=== PATIENT | female | born 1995 | race Caucasian/White ===

== ENCOUNTER 2022-03-08 03:58 | Inpatient (IN) ==
[2022-03-08] MEDS ORDERED: Naloxone 0.4 MG/ML INJ IVP PRN (04:31)
[2022-03-08] MEDS ORDERED: miSOPROStoL 25 MCG TABLET PO PRN (04:31)
[2022-03-08] MEDS ORDERED: Famotidine 20 MG/2 ML VIAL IVP PRN (04:31)
[2022-03-08] MEDS ORDERED: Metoclopramide 10 MG/2 ML VIAL IVP PRN (04:31)
[2022-03-08] MEDS ORDERED: Ondansetron 4 MG/2 ML VIAL IVP PRN (04:31)
[2022-03-08] MEDS ORDERED: *HR* Nalbuphine 10 MG/ML AMPUL IV PRN (04:31)
[2022-03-08] MEDS ORDERED: Azithromycin 500 MG in 0.9 % Sodium Chloride 250 ML IVPB PRN (04:31)
[2022-03-08 05:01] LABS: Basophils # 0.1 K/mcL (0.0-0.2); Basophils % 0.6 %; Eosinophils % 0.4 %; Hematocrit 40.4 % (35.3-44.9); Hemoglobin 13.9 g/dL (11.5-15.4); Immature Granulocytes % 0.3 % (0-4); Lymphocytes # 3.7 K/mcL (0.6-4.6); Lymphocytes % 40.9 %; Mean Corpuscular HGB Conc 34.4 g/dL (31.6-35.5); Mean Corpuscular Hemoglobin 30.8 pg (28.0-33.3); Mean Corpuscular Volume 89.4 fL (83.0-100.0); Mean Platelet Volume 10.9 fL (9.4-12.4); Monocytes # 0.8 K/mcL (0.0-1.3); Monocytes % 9.2 %; Neutrophils # 4.4 K/mcL (1.6-8.9); Platelet Count 283 K/mcL (140-400); Red Blood Count 4.52 M/mcL (3.82-4.97); Red Cell Distribution Width 13.4 % (11.5-14.5); Segmented Neutrophils % 48.6 %; White Blood Count 9.1 K/mcL (4.3-11.1)
[2022-03-08 05:06] LABS: Amphetamine Screen,Urine Negative ng/mL (Cutoff=1000); Barbiturate Screen,Urine Negative ng/mL (Cutoff=200); Benzodiazepines Screen,Urine Negative ng/mL (Cutoff=200); Cannabinoid Screen,Urine Negative ng/mL (Cutoff = 50); Cocaine Screen,Urine Negative ng/mL (Cutoff= 300); Opiate Screen,Urine Negative ng/mL (Cutoff=300); Phencyclidine Screen,Urine Negative ng/mL (Cutoff=25)
[2022-03-08] MEDS: Oxytocin 30 UNIT/503 ML BAG IVC SCH ×2 (05:24→13:19)
[2022-03-08] MEDS: Ringers Solution, Lactated 1,000 ML IVC SCH ×2 (05:25→08:11)
[2022-03-08 05:35] LABS: Glucose 75 mg/dL (70-105)
[2022-03-08 06:10] LABS: Alanine Aminotransferase 23 Units/L (7-52); Aspartate Amino Transferase 23 Units/L (13-39); BUN/Creatinine Ratio 14 (6-26); Blood Urea Nitrogen 10 mg/dL (6-20); Lactate Dehydrogenase 164 Units/L (140-271); Uric Acid 6.5 mg/dL (2.3-7.6); eGFR For African Americans > 60 (> 60); eGFR For Non-African Americans > 60 (> 60)
[2022-03-08 06:17] LABS: Bacteria,Urine Few per hpf (None-Few); Bilirubin,Urine Negative (Negative); Blood,Urine Negative (Negative); Clarity,Urine Turbid (Clear); Color,Urine Yellow (Yellow); Glucose,Urine (UA) Normal (Normal); Hyaline Casts,Urine Few per lpf (None Seen); Ketones,Urine Negative (Negative); Leukocyte Esterase,Urine Large (Negative); Mucus,Urine Few per lpf (None-Few); Nitrite,Urine Negative (Negative); PH,Urine 6.5 pH Units (5.0-8.0); Protein,Urine 30 mg/dL (Neg-Trace); Protein/Creatinine Ratio,Urine 0.19 mg/mg (0.00-0.20); Specific Gravity,Urine 1.023 (1.010-1.025); Squamous Epithelial Cell,Urine Many per hpf (None-Few); Urobilinogen,Urine Normal (Normal); WBC,Urine TNTC per hpf (0-3)
[2022-03-08] MEDS ORDERED: Epidural Premix (fent/bupiv) 110 ML EP SCH (08:00)
[2022-03-08] MEDS ORDERED: EPHEDrine 50 MG/ML VIAL IVP PRN (08:00)
[2022-03-08] MEDS ORDERED: OXYTOCIN/RINGERS LACTATE 10 UNIT/166.6 ML BAG IVC ONE (14:57)
[2022-03-08] MEDS ORDERED: Rho Immune Globulin 1,500 UNIT SYRINGE IM PRN (14:57)
[2022-03-08] MEDS ORDERED: Ondansetron ODT 4 MG TAB.RAPDIS SL PRN (14:57)
[2022-03-08] MEDS ORDERED: Measles/Mumps/Rubella Vacc 0.5 ML VIAL SQ PRN (14:57)
[2022-03-08] MEDS ORDERED: Lanolin 7 G OINT...G. TP PRN (14:57)
[2022-03-08] MEDS ORDERED: Benzocaine/Menthol 56 GM AEROSOL SPRAY TP PRN (14:57)
[2022-03-08] MEDS: Ibuprofen 600 MG TABLET PO SCH (21:05)
[2022-03-08] MEDS: Acetaminophen 325 MG TABLET PO SCH (21:05)
[2022-03-09] MEDS: Ibuprofen 600 MG TABLET PO SCH ×2 (04:03→10:35)
[2022-03-09] MEDS: Acetaminophen 325 MG TABLET PO SCH ×2 (04:04→10:36)
[2022-03-09 04:08] VITALS: TEMP 98.1
[2022-03-09 05:15] LABS: Basophils % 0.4 %; Eosinophils % 0.4 %; Hematocrit 39.7 % (35.3-44.9); Hemoglobin 13.6 g/dL (11.5-15.4); Immature Granulocytes % 0.4 % (0-4); Lymphocytes # 2.6 K/mcL (0.6-4.6); Mean Corpuscular HGB Conc 34.3 g/dL (31.6-35.5); Mean Corpuscular Hemoglobin 30.7 pg (28.0-33.3); Mean Corpuscular Volume 89.6 fL (83.0-100.0); Monocytes # 0.7 K/mcL (0.0-1.3); Neutrophils # 6.5 K/mcL (1.6-8.9); Platelet Count 279 K/mcL (140-400); Red Blood Count 4.43 M/mcL (3.82-4.97); Red Cell Distribution Width 13.4 % (11.5-14.5); Segmented Neutrophils % 65.8 %; White Blood Count 9.9 K/mcL (4.3-11.1)
[2022-03-09 07:08] VITALS: BP 120/56; PULSE 78; O2SAT 100
[2022-03-09] MEDS ORDERED: Prenatal Vit/FA 1 EACH TABLET PO SCH ×2 (09:00)
== END 2022-03-09 16:49 | disposition home or self-care (01) | DRG 807 ==
LOC: 1NENULAB 03:58 → 1NENUOBS 15:44
PROVIDERS: ADMIT Student in an Organized Health Care Education/Training Program; ATTEND Student in an Organized Health Care Education/Training Program

== ENCOUNTER 2022-03-15 16:41 | Observation (INO) ==
[2022-03-15] MEDS ORDERED: Ibuprofen 600 MG TABLET PO PRN (23:25)
[2022-03-15] MEDS ORDERED: Acetaminophen 325 MG TABLET PO PRN (23:25)
[2022-03-15] MEDS ORDERED: Magnesium Sulf 20 gm/SW 500mL 20 GM/500 ML IV.SOLN IVC SCH (23:30)
[2022-03-15] MEDS ORDERED: 0.9 % Sodium Chloride 1,000 ML ONE (23:33)
[2022-03-16] MEDS ORDERED: Calcium Gluconate 1,000 MG/10 ML VIAL ONE (02:09)
[2022-03-16 05:09] LABS: Hematocrit 41.8 % (35.3-44.9); Hemoglobin 14.1 g/dL (11.5-15.4); Mean Corpuscular HGB Conc 33.7 g/dL (31.6-35.5); Mean Corpuscular Hemoglobin 30.6 pg (28.0-33.3); Mean Corpuscular Volume 90.7 fL (83.0-100.0); Mean Platelet Volume 9.5 fL (9.4-12.4); Platelet Count 382 K/mcL (140-400); Red Blood Count 4.61 M/mcL (3.82-4.97); Red Cell Distribution Width 13.1 % (11.5-14.5); White Blood Count 9.7 K/mcL (4.3-11.1)
[2022-03-16 05:10] LABS: Basophils # 0.1 K/mcL (0.0-0.2); Basophils % 0.5 %; Eosinophils # 0.1 K/mcL (0.0-0.6); Eosinophils % 0.9 %; Immature Granulocytes % 0.5 % (0-4); Lymphocytes # 2.9 K/mcL (0.6-4.6); Lymphocytes % 29.5 %; Monocytes # 0.7 K/mcL (0.0-1.3); Monocytes % 7.6 %; Neutrophils # 5.9 K/mcL (1.6-8.9)
[2022-03-16 05:18] LABS: Protein/Creatinine Ratio,Urine 0.32 mg/mg (0.00-0.20)
[2022-03-16 05:30] LABS: Alanine Aminotransferase 27 Units/L (7-52); Aspartate Amino Transferase 17 Units/L (13-39); BUN/Creatinine Ratio 13 (6-26); Blood Urea Nitrogen 9 mg/dL (6-20); Lactate Dehydrogenase 160 Units/L (140-271); Uric Acid 6.4 mg/dL (2.3-7.6); eGFR For African Americans > 60 (> 60); eGFR For Non-African Americans > 60 (> 60)
[2022-03-16] MEDS ORDERED: Ringers Solution, Lactated 1,000 ML ONE (13:00)
[2022-03-17] MEDS: NIFEdipine XL (24 HR) 60 MG TAB.ER.24 PO SCH (16:34)
[2022-03-17 21:46] VITALS: TEMP 98
[2022-03-18 06:00] LABS: Basophils # 0.1 K/mcL (0.0-0.2); Basophils % 0.6 %; Eosinophils # 0.2 K/mcL (0.0-0.6); Eosinophils % 1.9 %; Hematocrit 43.6 % (35.3-44.9); Hemoglobin 14.6 g/dL (11.5-15.4); Immature Granulocytes % 0.3 % (0-4); Lymphocytes # 3.5 K/mcL (0.6-4.6); Lymphocytes % 36.7 %; Mean Corpuscular HGB Conc 33.5 g/dL (31.6-35.5); Mean Corpuscular Hemoglobin 30.5 pg (28.0-33.3); Mean Corpuscular Volume 91.2 fL (83.0-100.0); Mean Platelet Volume 8.9 fL (9.4-12.4); Monocytes # 0.8 K/mcL (0.0-1.3); Monocytes % 8.2 %; Platelet Count 419 K/mcL (140-400); Red Blood Count 4.78 M/mcL (3.82-4.97); Red Cell Distribution Width 13.1 % (11.5-14.5); Segmented Neutrophils % 52.3 %; White Blood Count 9.5 K/mcL (4.3-11.1)
[2022-03-18 06:14] LABS: Alanine Aminotransferase 39 Units/L (7-52); Aspartate Amino Transferase 25 Units/L (13-39); BUN/Creatinine Ratio 21 (6-26); Blood Urea Nitrogen 17 mg/dL (6-20); Lactate Dehydrogenase 185 Units/L (140-271); Uric Acid 7.4 mg/dL (2.3-7.6); eGFR For African Americans > 60 (> 60); eGFR For Non-African Americans > 60 (> 60)
[2022-03-18 08:25] VITALS: PULSE 84; O2SAT 98
[2022-03-18] MEDS: NIFEdipine XL (24 HR) 60 MG TAB.ER.24 PO SCH (09:31)
[2022-03-18 12:42] VITALS: BP 126/95
== END 2022-03-18 15:30 | disposition home or self-care (01) ==
LOC: 1NENUOBS → 1NENUPED 03-17 19:34
PROVIDERS: ADMIT Obstetrics & Gynecology; ATTEND Obstetrics & Gynecology